=== PATIENT | female | born 1970 | race Caucasian/White ===

== ENCOUNTER 2017-05-01 10:55 | Emergency (ER) | payer MEDICAID ==
[2017-05-01] MEDS ORDERED: Ondansetron 4 MG/2 ML SDV IVPUSH ONE (11:39)
[2017-05-01] MEDS ORDERED: Sodium Chloride 0.9% 1,000 ML IV ONE ×2 (11:39→13:20)
--- NOTE | 2017-05-01 11:47 | EDM.PDOC ---
ED HPI GENERAL MEDICAL PROBLEM - General Chief Complaint: Gastrointestinal Problem Stated Complaint: VOMITING Time Seen by Provider: 05/01/17 11:46 Source of Information: Reports: Patient History Limitations: Reports: No Limitations - History of Present Illness INITIAL COMMENTS - FREE TEXT/NARRATIVE: HISTORY AND PHYSICAL: History of present illness: Patient is a 46-year-old female who presents to the emergency room with complaints of nausea, vomiting, diarrhea and abdominal cramping which started approximately 11 PM yesterday. States they were out of town last night and had eaten at a sitdown restaurant, approximately 2 hours after she started having the symptoms. Although these symptoms occurred shortly after eating, the rest of her family members do not feel ill. Patient states she has some leftover Zofran, took that this morning but did not alleviate any of her symptoms. Denies any blood in her stools or dysuria. No chance of as she has had her tubes tied. Patient has a past medical history of migraine, acid reflux, asthma, depression , and DVT. Patient denies any chest pain, shortness of breath, headache, fever or chills. Denies any recent travel out of the state/country. Review of systems: As per history of present illness and below otherwise all systems reviewed and negative. Past medical history: As per history of present illness and as reviewed below otherwise noncontributory. Surgical history: As per history of present illness and as reviewed below otherwise noncontributory. Social history: No reported history of drug or alcohol abuse. Family history: As per history of present illness and as reviewed below otherwise noncontributory. Physical exam: Gen.: Well-developed and well-nourished 46 show female. Able to speak in full sentences without shortness of breath. Alert and oriented. HEENT: Atraumatic, normocephalic, pupils reactive, negative for conjunctival pallor or scleral icterus, mucous membranes moist - lips appear dry, throat clear, neck supple, nontender, trachea midline. Lungs: Clear to auscultation, breath sounds equal bilaterally, chest nontender. Heart: S1S2, regular, negative for clicks, rubs, or JVD. Abdomen: Soft, nondistended, nontender. Negative for masses or hepatosplenomegaly. Negative for costovertebral tenderness. Pelvis: Stable nontender. Genitourinary: Deferred. Rectal: Deferred. Extremities: Atraumatic, negative for cords or calf pain. Neurovascular unremarkable. Neuro: Awake, alert, oriented. Cranial nerves II through XII unremarkable. Cerebellum unremarkable. Motor and sensory unremarkable throughout. Exam nonfocal. Patient reports she feels better after the IV fluids, Zofran and morphine. She has had 2 loose stools since being here but did not catch them for sample. At this time I'll treat her as a viral gastroenteritis. Patient was educated how to catch a stool culture if she continues to have diarrhea and she may bring these in for further testing at her convenience. Agreeable to plan of care and denies any further questions. Diagnostics: CBC, CMP, Therapeutics: IV fluid, Zofran, morphine Impression: Gastroenteritis Plan: 1. You may take Imodium 4 mg one time and then 2 mg after each loose stool with a maximum of 16 mg per day. 2. Please use the Zofran that you have at home for nausea control. Proceed with a bland diet for the rest of the day and ensure plenty of fluid intake. 3. Follow-up with your primary caregiver in the next 1-2 days. Return to the ED as needed and as discussed. Definitive disposition and diagnosis as appropriate pending reevaluation and review of above. Onset Date: 04/30/17 Onset Time: 23:00 Location: Reports: Abdomen Abdominal Pain Score (Numeric/FACES): 9 - Related Data Allergies Allergy/AdvReac Type Severity Reaction Status Date / Time amoxicillin trihydrate Allergy Hives Verified 03/01/17 11:46 MDT [From Augmentin] cephalexin Allergy Itching Verified 03/01/17 11:46 MDT Penicillins Allergy Hives Verified 03/01/17 11:46 MDT potassium clavulanate Allergy Hives Verified 03/01/17 11:46 MDT [From Augmentin] Sulfa (Sulfonamide Allergy Hives Verified 03/01/17 11:46 MDT Antibiotics) venlafaxine [From Effexor] Allergy Other Verified 05/01/17 11:17 Home Meds: Home Meds Albuterol [Proair HFA] 2 puff INH Q4H PRN 03/17/14 [History] Cyclobenzaprine [Flexeril] 10 mg PO BID PRN 03/17/14 [History] LORazepam [Ativan] 1 mg PO BID PRN 03/17/14 [History] Omeprazole 20 mg PO DAILY 03/17/14 [History] Ondansetron HCl [Ondansetron] 4 mg PO BID PRN 03/17/14 [History] cloNIDine HCl [Clonidine HCl] 1 tab PO BID 03/17/14 [History] Citalopram Hydrobromide [Celexa] 40 mg PO DAILY 11/14/14 [History] Fluticasone Propionate [Flonase] 1 spray BOOKER BID PRN 11/14/14 [History] Rizatriptan [Maxalt] 10 mg PO ASDIRECTED PRN 12/03/14 [History] Rivaroxaban [Xarelto] 20 mg PO DAILY 03/22/15 [History] traMADol HCl [Tramadol HCl] 50 mg PO Q6H PRN 05/20/15 [History] Cholecalciferol (Vitamin D3) [Vitamin D3] 2 tab PO DAILY 03/01/17 [History] DULoxetine [Cymbalta] 30 mg PO DAILY 05/01/17 [History] Diclofenac Sodium [IJD: Diclofenac Sodium] 75 mg PO .TWICE DAILY W MEALS [History] Loratadine 10 mg PO DAILY PRN 05/01/17 [History] Metoprolol Succinate [Toprol XL] 25 mg PO DAILY 05/01/17 [History] Past Medical History HEENT History: Reports: Allergic Rhinitis Cardiovascular History: Reports: Hypertension Other Cardiovascular History: chest pain, fluttering sensation, irregular heart rate, leg swelling, DVT Respiratory History: Reports: COPD Other Respiratory History: cough, pharyngitis - Severe Snoring Gastrointestinal History: Reports: GERD Other Gastrointestinal History: nausea vomitting Genitourinary History: Reports: Urinary Incontinence, Other (See Below) Other Genitourinary History: UTI, pelvic pain HEEL REDUCER History: Reports: , Other (See Below) Other OB/BYN History: breast lump, menorrhagia, hot flashes, postcoital bleeding Musculoskeletal History: Reports: Osteoarthritis Other Musculoskeletal History: restless leg syndrome, ac joint bone spurs, R biceps tendonitis, R shoulder pain, R rotator cuff tear, knee tear, patellar relalingment syndrome Neurological History: Reports: Headaches, Chronic, Migraines, Neuropathy, Peripheral, Vertigo Other Neuro History: fatigue, insomnia Psychiatric History: Reports: Anxiety, Depression, PTSD Endocrine/Metabolic History: Reports: Obesity/BMI 30+ Hematologic History: Reports: Anticoagulation Therapy, Other (See Below) Other Hematologic History: hypovitaminosis vitamin D, post thromotic syndrome Dermatologic History: Reports: Seborrheic Dermatitis Other Dermatologic History: ecezma, varicose veins, folliculitis - Infectious Disease History Infectious Disease History: Reports: Chicken Pox - Past Surgical History HEENT Surgical History: Reports: Myringotomy w Tube(s) Female Surgical History: Reports: Oophorectomy, Tubal Ligation Musculoskeletal Surgical History: Reports: Arthroscopic Procedure, Shoulder Surgery Social & Family History - Family History Family Medical History: Noncontributory - Tobacco Use Smoking Status *Q: Never Smoker Used Tobacco, but Quit: No Second Hand Smoke Exposure: Yes - Caffeine Use Caffeine Use: Reports: Soda - Alcohol Use Days Per Week of Alcohol Use: 0 Number of Drinks Per Day: 0 Total Drinks Per Week: 0 - Recreational Drug Use Recreational Drug Use: No Drug Use in Last 12 Months: No - Living Situation & Occupation Living situation: Reports: , with Family Occupation: Unemployed ED ROS GENERAL - Review of Systems Review Of Systems: ROS reveals no pertinent complaints other than HPI. ED EXAM, GI/ABD - Physical Exam Exam: See Below (See dictation) Course - Vital Signs Last Recorded V/S: Last Vital Signs Temp 36.5 C 05/01/17 11:15 Pulse 94 05/01/17 12:24 Resp 16 05/01/17 12:24 BP 136/84 05/01/17 12:24 Pulse Ox 98 05/01/17 12:24 - Orders/Labs/Meds Orders: Active Orders 24 hr Category Date Time Status CULTURE STOOL + CAMPY+SHIGATOX [RM] Stat Lab 05/01/17 13:20 Uncollected OVA & PARASITES BY IMMUNOASSAY [MREF] Stat Lab 05/01/17 13:20 Uncollected Sodium Chloride 0.9% [Normal Saline] 1,000 ml Med 05/01/17 13:20 Active IV STAT Medication Orders Sodium Chloride (Normal Saline) 1,000 mls @ 999 mls/hr IV STAT ONE Stop: 05/01/17 14:20 Last Admin: 05/01/17 13:25 Dose: 999 mls/hr Labs: Laboratory Tests 10/15/17 10/15/17 Range/Units 11:51 11:51 WBC 10.07 (4.0-11.0) K/uL RBC 4.70 (4.30-5.90) M/uL Hgb 13.5 (12.0-16.0) g/dL Hct 39.7 (36.0-46.0) % MCV 84.5 (80.0-98.0) fL MCH 28.7 (27.0-32.0) pg MCHC 34.0 (31.0-37.0) g/dL RDW Std Deviation 43.3 (28.0-62.0) fl RDW Coeff of Sonido 14 (11.0-15.0) % Plt Count 319 (150-400) K/uL MPV 9.20 (7.40-12.00) fL Neut % (Auto) 88.4 H (48.0-80.0) % Lymph % (Auto) 5.5 L (16.0-40.0) % Prentiss % (Auto) 5.2 (0.0-15.0) % Eos % (Auto) 0.7 (0.0-7.0) % Baso % (Auto) 0.2 (0.0-1.5) % Neut # (Auto) 8.9 H (1.4-5.7) K/uL Lymph # (Auto) 0.6 (0.6-2.4) K/uL Prentiss # (Auto) 0.5 (0.0-0.8) K/uL Eos # (Auto) 0.1 (0.0-0.7) K/uL Baso # (Auto) 0.0 (0.0-0.1) K/uL Nucleated RBC % 0.0 /100WBC Nucleated RBCs # 0 K/uL Sodium 136 (136-146) mmol/L Potassium 3.9 (3.5-5.1) mmol/L Chloride 102 (98-110) mmol/L Carbon Dioxide 23 (21-31) mmol/L BUN 14 (6.0-23.0) mg/dL Creatinine 0.8 (0.6-1.5) mg/dL Est Cr Clr Drug Dosing 88.64 mL/min Estimated GFR (MDRD) > 60.0 ml/min Glucose 122 H (60-110) mg/dL Calcium 9.3 (8.8-10.8) mg/dL Total Bilirubin 0.8 (0.1-1.5) mg/dL AST 24 (5-40) IU/L ALT 31 (8-54) IU/L Alkaline Phosphatase 124 (40-150) Total Protein 7.7 (6.0-8.0) g/dL Albumin 4.0 (3.5-5.0) g/dL Globulin 3.7 H (2.0-3.5) g/dL Albumin/Globulin Ratio 1.1 L (1.3-2.8) Meds: Medications Generic Name Dose Route Start Last Admin Trade Name Freq PRN Reason Stop Dose Admin Sodium Chloride 1,000 mls @ 999 mls/hr 05/01/17 13:20 05/01/17 13:25 Normal Saline IV 05/01/17 14:20 999 mls/hr STAT ONE Administration Discontinued Medications Generic Name Dose Route Start Last Admin Trade Name Freq PRN Reason Stop Dose Admin Dicyclomine HCl 10 mg 05/01/17 13:19 05/01/17 13:23 Bentyl PO 05/01/17 13:20 10 mg ONETIME ONE Administration Sodium Chloride 1,000 mls @ 999 mls/hr 05/01/17 11:39 05/01/17 11:56 Normal Saline IV 05/01/17 12:39 999 mls/hr STAT ONE Administration Morphine Sulfate 2 mg 05/01/17 12:08 05/01/17 12:22 Morphine IVPUSH 05/01/17 12:09 2 mg ONETIME ONE Administration Ondansetron HCl 4 mg 05/01/17 11:39 05/01/17 11:57 Zofran IVPUSH 05/01/17 11:40 4 mg ONETIME ONE Administration Departure - Departure Time of Disposition: 13:46 Disposition: Home, Self-Care 01 Clinical Impression: Gastroenteritis - Discharge Information Referrals: PCP,None [Primary Care Provider] - Forms: ED Department Discharge Additional Instructions: My general discharge The following information is given to patients seen in the emergency department who are being discharged to home. This information is to outline your options for follow-up care. We provide all patients seen in our emergency department with a follow-up referral. The need for follow-up, as well as the timing and circumstances, are variable depending upon the specifics of your emergency department visit. If you don't have a primary care physician on staff, we will provide you with a referral. We always advise you to contact your personal physician following an emergency department visit to inform them of the circumstance of the visit and for follow-up with them and/or the need for any referrals to a consulting specialist. The emergency department will also refer you to a specialist when appropriate. This referral assures that you have the opportunity for follow-up care with a specialist. All of these measure are taken in an effort to provide you with optimal care, which includes your follow-up. Under all circumstances we always encourage you to contact your private physician who remains a resource for coordinating your care. When calling for follow-up care, please make the office aware that this follow-up is from your recent emergency room visit. If for any reason you are refused follow-up, please contact the [facility] Emergency Department at and asked to speak to the emergency department charge nurse. [facility] [address] [place] [address] 1. You may take Imodium 4 mg one time and then 2 mg after each loose stool with a maximum of 16 mg per day. 2. Please use the Zofran that you have at home for nausea control. Proceed with a bland diet for the rest of the day and ensure plenty of fluid intake. 3. Follow-up with your primary caregiver in the next 1-2 days. Return to the ED as needed and as discussed. - My Orders Last 24 Hours: My Active Orders 05/01/17 13:20 CULTURE STOOL + CAMPY+SHIGATOX [RM] Stat OVA & PARASITES BY IMMUNOASSAY [MREF] Stat Sodium Chloride 0.9% [Normal Saline] 1,000 ml IV STAT - Assessment/Plan Last 24 Hours: My Active Orders 05/01/17 13:20 CULTURE STOOL + CAMPY+SHIGATOX [RM] Stat OVA & PARASITES BY IMMUNOASSAY [MREF] Stat Sodium Chloride 0.9% [Normal Saline] 1,000 ml IV STAT
[2017-05-01] MEDS ORDERED: Morphine 2 MG/ML Syringe IVPUSH ONE (12:08)
[2017-05-01 12:26] LABS: CHLORIDE,CL 102 mmol/L (98-110); SODIUM,NA 136 mmol/L (136-146)
[2017-05-01] MEDS ORDERED: Dicyclomine 10 MG Cap PO ONE ×2 (13:19→15:52)
[2017-05-01] MEDS ORDERED: Iopamidol 755 MG/ML 500 ML Multipack Bottle IVPUSH STA (14:41)
[2017-05-01 16:09] VITALS: BP 128/85
--- NOTE | 2017-05-02 13:38 | CT ---
EXAM DATE: 05/01/17 PATIENT'S AGE: 46 Patient: JAIME TRICKEY Facility: [place], [place] Site . Site : 1970 Study: CT Abdomen/Pelvis [id number]/15/2017 3:10:45 PM Ordering Physician: Doctor Arguelles Final Report: INDICATION: Pain. Diarrhea. Blood in stool. TECHNIQUE: Multiple axial images were obtained from the diaphragm to the symphysis pubis after administration of 100 mL of Isovue-370 intravenously. Sagittal and coronal re-formatted images were obtained. COMPARISON: None. FINDINGS: The visualized portion of the lung bases are clear. The liver is of diffuse decreased attenuation consistent with fatty infiltration of the liver. The spleen, pancreas, gallbladder and adrenal glands are unremarkable. There is no mass or hydronephrosis in the kidneys. There is no evidence of a bowel obstruction. The appendix is visualized in the right lower quadrant and is unremarkable. The abdominal aorta is normal in caliber. There is no adenopathy seen. There is no free intraperitoneal air or free fluid identified in the abdomen or pelvis. IMPRESSION: 1. No acute abnormality on CT scan abdomen and pelvis with contrast. 2. Fatty infiltration of the liver. Dictated by Duane Hong MD @ 05/01/2017 3:41:48 PM Dictated by: Duane Hong MD @ 05/01/2017 15:42:00 (Electronic Signature) Report Signed by Proxy. [facility]
== END 2017-05-01 16:00 | disposition home or self-care (01) ==
LOC: MW.ED 10:55
DX: K52.9 Noninfective gastroenteritis and colitis, unspecified (principal); I10 Essential (primary) hypertension; J44.9 Chronic obstructive pulmonary disease, unspecified; K21.9 Gastro-esophageal reflux disease without esophagitis; M19.90 Unspecified osteoarthritis, unspecified site; F32.9 Major depressive disorder, single episode, unspecified; E66.9 Obesity, unspecified; Z79.01 Long term (current) use of anticoagulants; Z98.51 Tubal ligation status; Z98.890 Other specified postprocedural states; Z79.899 Other long term (current) drug therapy; Z88.0 Allergy status to penicillin; Z88.1 Allergy status to other antibiotic agents; Z88.2 Allergy status to sulfonamides; Z88.8 Allergy status to other drugs, medicaments and biological substances
CPT/HCPCS: 36415; 74177; 80053; 85025; 96361; 96374; 96375; 99284; A9270; J2270; J2405; J7040; Q9967

== ENCOUNTER 2017-08-30 10:49 | Emergency (ER) | payer MEDICAID, OTHER ==
[2017-08-30] MEDS ORDERED: Ketorolac 60 MG/2 ML SDV IM ONE (11:15)
--- NOTE | 2017-08-30 11:16 | EDM.PDOC ---
ED HPI GENERAL MEDICAL PROBLEM - General Chief Complaint: Headache Stated Complaint: MIGRAINE Time Seen by Provider: 08/30/17 11:04 Source of Information: Reports: Patient History Limitations: Reports: No Limitations - History of Present Illness INITIAL COMMENTS - FREE TEXT/NARRATIVE: History of present illness: []Patient's had headache for 5 days that feels like a typical migraine. She has tried Maxalt but has not worked which he usually does. Patient has also use Excedrin Migraine and sinus medications without relief. She denies any vomiting , fevers or recent illnesses with congestion and cough runny nose. He does not currently have a primary care doctor here is not been able to follow-up with her doctor out of town. Review of systems: As per history of present illness and below otherwise all systems reviewed and negative. Past medical history: As per history of present illness and as reviewed below otherwise noncontributory. Surgical history: As per history of present illness and as reviewed below otherwise noncontributory. Social history: No reported history of drug or alcohol abuse. Family history: As per history of present illness and as reviewed below otherwise noncontributory. Physical exam: General: Well developed, well nourished in NAD HEENT: Atraumatic, normocephalic, pupils reactive, negative for conjunctival pallor or scleral icterus, mucous membranes moist, throat clear, neck supple, nontender, trachea midline. No sinus tenderness Lungs: Clear to auscultation, breath sounds equal bilaterally, chest nontender. Heart: S1S2, regular, negative for clicks, rubs, or JVD. Abdomen: Soft, nondistended, nontender. Negative for masses or hepatosplenomegaly. Negative for costovertebral tenderness. Pelvis: Stable nontender. Genitourinary: Deferred. Rectal: Deferred. Extremities: Atraumatic, negative for cords or calf pain. Neurovascular unremarkable. Neuro: Awake, alert, oriented. Cranial nerves II through XII unremarkable. Cerebellum unremarkable. Motor and sensory unremarkable throughout. Exam nonfocal. Diagnostics: [] Therapeutics: []Toradol IM with improvement Impression: []Migraine headache Plan: []Ice pack to head continue headache meds as directed and follow-up with primary care retractor symptoms worsen or change Definitive disposition and diagnosis as appropriate pending reevaluation and review of above. headache Pain Score (Numeric/FACES): 8 - Related Data Allergies Allergy/AdvReac Type Severity Reaction Status Date / Time amoxicillin trihydrate Allergy Hives Verified 08/30/17 11:34 [From Augmentin] cephalexin Allergy Itching Verified 08/30/17 11:34 Penicillins Allergy Hives Verified 08/30/17 11:34 potassium clavulanate Allergy Hives Verified 08/30/17 11:34 [From Augmentin] Sulfa (Sulfonamide Allergy Hives Verified 08/30/17 11:34 Antibiotics) venlafaxine [From Effexor] Allergy Other Verified 08/30/17 11:34 Home Meds: Home Meds Albuterol [Proair HFA] 2 puff INH Q4H PRN 03/17/14 [History] Cyclobenzaprine [Flexeril] 10 mg PO BID PRN 03/17/14 [History] LORazepam [Ativan] 1 mg PO BID PRN 03/17/14 [History] Omeprazole 20 mg PO DAILY 03/17/14 [History] Ondansetron HCl [Ondansetron] 4 mg PO BID PRN 03/17/14 [History] cloNIDine HCl [Clonidine HCl] 1 tab PO BID 03/17/14 [History] Citalopram Hydrobromide [Celexa] 40 mg PO DAILY 11/14/14 [History] Fluticasone Propionate [Flonase] 1 spray BOOKER BID PRN 11/14/14 [History] Rizatriptan [Maxalt] 10 mg PO ASDIRECTED PRN 12/03/14 [History] Rivaroxaban [Xarelto] 20 mg PO DAILY 03/22/15 [History] traMADol HCl [Tramadol HCl] 50 mg PO Q6H PRN 05/20/15 [History] Cholecalciferol (Vitamin D3) [Vitamin D3] 2 tab PO DAILY 03/01/17 [History] DULoxetine [Cymbalta] 30 mg PO DAILY 05/01/17 [History] Diclofenac Sodium [IJD: Diclofenac Sodium] 75 mg PO .TWICE DAILY W MEALS [History] Loratadine 10 mg PO DAILY PRN 05/01/17 [History] Metoprolol Succinate [Toprol XL] 25 mg PO DAILY 05/01/17 [History] Past Medical History HEENT History: Reports: Allergic Rhinitis Cardiovascular History: Reports: Hypertension Other Cardiovascular History: chest pain, fluttering sensation, irregular heart rate, leg swelling, DVT Respiratory History: Reports: COPD Other Respiratory History: cough, pharyngitis - Severe Snoring Gastrointestinal History: Reports: GERD Other Gastrointestinal History: nausea vomitting Genitourinary History: Reports: Urinary Incontinence, Other (See Below) Other Genitourinary History: UTI, pelvic pain EDGE MOLDER History: Reports: , Other (See Below) Other OB/BYN History: breast lump, menorrhagia, hot flashes, postcoital bleeding Musculoskeletal History: Reports: Osteoarthritis Other Musculoskeletal History: restless leg syndrome, ac joint bone spurs, R biceps tendonitis, R shoulder pain, R rotator cuff tear, knee tear, patellar relalingment syndrome Neurological History: Reports: Headaches, Chronic, Migraines, Neuropathy, Peripheral, Vertigo Other Neuro History: fatigue, insomnia Psychiatric History: Reports: Anxiety, Depression, PTSD Endocrine/Metabolic History: Reports: Obesity/BMI 30+ Hematologic History: Reports: Anticoagulation Therapy, Other (See Below) Other Hematologic History: hypovitaminosis vitamin D, post thromotic syndrome Dermatologic History: Reports: Seborrheic Dermatitis Other Dermatologic History: ecezma, varicose veins, folliculitis - Infectious Disease History Infectious Disease History: Reports: Chicken Pox - Past Surgical History HEENT Surgical History: Reports: Myringotomy w Tube(s) Female Surgical History: Reports: Oophorectomy, Tubal Ligation Musculoskeletal Surgical History: Reports: Arthroscopic Procedure, Shoulder Surgery Social & Family History - Family History Family Medical History: Noncontributory - Tobacco Use Smoking Status *Q: Never Smoker Used Tobacco, but Quit: No Second Hand Smoke Exposure: Yes - Caffeine Use Caffeine Use: Reports: Soda - Alcohol Use Days Per Week of Alcohol Use: 0 Number of Drinks Per Day: 0 Total Drinks Per Week: 0 - Recreational Drug Use Recreational Drug Use: No Drug Use in Last 12 Months: No - Living Situation & Occupation Living situation: Reports: , with Family Occupation: Unemployed ED ROS GENERAL - Review of Systems Review Of Systems: See Below (See history of present illness) - Physical Exam Exam: See Below (See history of present illness) Course - Vital Signs Last Recorded V/S: Last Vital Signs Temp 97.0 F 08/30/17 11:35 Pulse 70 08/30/17 11:35 Resp 18 08/30/17 11:35 BP 138/65 08/30/17 11:35 Pulse Ox 97 08/30/17 11:35 - Orders/Labs/Meds Meds: Medications Discontinued Medications Generic Name Dose Route Start Last Admin Trade Name Mayra PRN Reason Stop Dose Admin Ketorolac Tromethamine 60 mg 08/30/17 11:15 08/30/17 11:38 Toradol IM 08/30/17 11:16 60 mg ONETIME ONE Administration Departure - Departure Time of Disposition: 11:47 Disposition: Home, Self-Care 01 Condition: Good Clinical Impression: Migraine headache Qualifiers: Migraine type: unspecified Status migrainosus presence: without status migrainosus Intractability: not intractable Qualified Code(s): G43.909 - Migraine, unspecified, not intractable, without status migrainosus - Discharge Information Referrals: PCP,None [Primary Care Provider] - Forms: ED Department Discharge Additional Instructions: The following information is given to patients seen in the emergency department who are being discharged to home. This information is to outline your options for follow-up care. We provide all patients seen in our emergency department with a follow-up referral. The need for follow-up, as well as the timing and circumstances, are variable depending upon the specifics of your emergency department visit. If you don't have a primary care physician on staff, we will provide you with a referral. We always advise you to contact your personal physician following an emergency department visit to inform them of the circumstance of the visit and for follow-up with them and/or the need for any referrals to a consulting specialist. The emergency department will also refer you to a specialist when appropriate. This referral assures that you have the opportunity for follow-up care with a specialist. All of these measure are taken in an effort to provide you with optimal care, which includes your follow-up. Under all circumstances we always encourage you to contact your private physician who remains a resource for coordinating your care. When calling for follow-up care, please make the office aware that this follow-up is from your recent emergency room visit. If for any reason you are refused follow-up, please contact the [facility] Emergency Department at and asked to speak to the emergency department charge nurse. [facility] [address] [place] [id number]
[2017-08-30 12:11] VITALS: BP 130/71
== END 2017-08-30 12:00 | disposition home or self-care (01) ==
LOC: MW.ED 10:49
DX: G43.909 Migraine, unspecified, not intractable, without status migrainosus (principal); I10 Essential (primary) hypertension; J44.9 Chronic obstructive pulmonary disease, unspecified; K21.9 Gastro-esophageal reflux disease without esophagitis; F32.9 Major depressive disorder, single episode, unspecified; Z79.01 Long term (current) use of anticoagulants; Z77.22 Contact with and (suspected) exposure to environmental tobacco smoke (acute) (chronic); Z79.899 Other long term (current) drug therapy; Z88.0 Allergy status to penicillin; Z88.1 Allergy status to other antibiotic agents; Z88.2 Allergy status to sulfonamides; Z88.8 Allergy status to other drugs, medicaments and biological substances
CPT/HCPCS: 96372; 99283; J1885

== ENCOUNTER 2017-10-27 19:41 | Emergency (ER) | payer MEDICAID, OTHER ==
--- NOTE | 2017-10-27 19:49 | EDM.PDOC ---
ED HPI GENERAL MEDICAL PROBLEM - General Stated Complaint: PT HAS MIGRAINE Time Seen by Provider: 10/27/17 19:43 Source of Information: Reports: Patient History Limitations: Reports: No Limitations - History of Present Illness INITIAL COMMENTS - FREE TEXT/NARRATIVE: HISTORY AND PHYSICAL: History of present illness: Patient is a 46-year-old female who presents to the emergency room with complaints of migraine headache, photophobia, noise sensitivity and nausea x 24 hours. Patient has a long standing history of migraines and typically takes Maxalt and Excedrin Migraine to help alleviate her symptoms. She states "as of lately these medications are not helping" and has not found relief with these. She reports she was seeing a nurse practitioner in [place], and is in the process of finding a new provider as she has moved to [place]. She denies any recent head injury, trauma, loss of consciousness or syncope. She denies any fever, chills, chest pain or shortness of breath. Denies any abdominal pain, vomiting, diarrhea or constipation. Review of systems: As per history of present illness and below otherwise all systems reviewed and negative. Past medical history: As per history of present illness and as reviewed below otherwise noncontributory. Surgical history: As per history of present illness and as reviewed below otherwise noncontributory. Social history: No reported history of drug or alcohol abuse. Family history: As per history of present illness and as reviewed below otherwise noncontributory. Physical exam: General: Well-developed and well-nourished 46 she'll female. Alert and oriented. Nontoxic appearing and in no acute distress. HEENT: Atraumatic, normocephalic, pupils equal and reactive bilaterally, negative for conjunctival pallor or scleral icterus, photophobic, mucous membranes moist, throat clear, neck supple, nontender, trachea midline. No drooling or trismus noted. No meningeal signs Lungs: Clear to auscultation, breath sounds equal bilaterally, chest nontender. Heart: S1S2, regular rate and rhythm without overt murmur Abdomen: Soft, nondistended, nontender. Negative for masses or hepatosplenomegaly. Negative for costovertebral tenderness. Pelvis: Stable nontender. Genitourinary: Deferred. Rectal: Deferred. Skin: Intact, warm, dry. No lesions or rashes noted. Extremities: Atraumatic, negative for cords or calf pain. Neurovascular unremarkable. Neuro: Awake, alert, oriented. Cranial nerves II through XII unremarkable. Cerebellum unremarkable. Motor and sensory unremarkable throughout. Exam nonfocal. Notes: Patient was seen in the emergency room about a month and a half ago for similar symptoms and was given IM Toradol. She states this medication did alleviate her discomfort, and would like to try this again today. 30 minutes after receiving the IM Toradol and Zofran she states she does not feel much better. She does have a ride home, will give IV medications with fluids. Diagnostics: [] Therapeutics: IM Toradol, Zofran ODT Phenergan IM, Ativan, Benadryl Impression: Migraine Headache Plan: 1. Take the remainder of the day to rest in a quiet dark room. 2. Please continue to take your Maxalt and OTC migraine medication as directed. 3. Follow up with Neurology in the next 2-3 days for further management of your migraines. Establish care with a PCP. Return to the ED as needed and as discussed. Definitive disposition and diagnosis as appropriate pending reevaluation and review of above. Onset: Today Location: Reports: Head Quality: Reports: Sharp Severity: Moderate Improves with: Reports: None Headache Pain Score (Numeric/FACES): 9 - Related Data Allergies Allergy/AdvReac Type Severity Reaction Status Date / Time amoxicillin trihydrate Allergy Hives Verified 10/27/17 20:03 [From Augmentin] cephalexin Allergy Itching Verified 10/27/17 20:03 Penicillins Allergy Hives Verified 10/27/17 20:03 potassium clavulanate Allergy Hives Verified 10/27/17 20:03 [From Augmentin] Sulfa (Sulfonamide Allergy Hives Verified 10/27/17 20:03 Antibiotics) venlafaxine [From Effexor] Allergy Other Verified 10/27/17 20:03 Home Meds: Home Meds Albuterol [Proair HFA] 2 puff INH Q4H PRN 03/17/14 [History] Cyclobenzaprine [Flexeril] 10 mg PO BID PRN 03/17/14 [History] LORazepam [Ativan] 1 mg PO BID PRN 03/17/14 [History] Omeprazole 20 mg PO DAILY 03/17/14 [History] Ondansetron HCl [Ondansetron] 4 mg PO BID PRN 03/17/14 [History] cloNIDine HCl [Clonidine HCl] 1 tab PO BID 03/17/14 [History] Citalopram Hydrobromide [Celexa] 40 mg PO DAILY 11/14/14 [History] Fluticasone Propionate [Flonase] 1 spray BOOKER BID PRN 11/14/14 [History] Rizatriptan [Maxalt] 10 mg PO ASDIRECTED PRN 12/03/14 [History] Rivaroxaban [Xarelto] 20 mg PO DAILY 03/22/15 [History] traMADol HCl [Tramadol HCl] 50 mg PO Q6H PRN 05/20/15 [History] Cholecalciferol (Vitamin D3) [Vitamin D3] 2 tab PO DAILY 03/01/17 [History] DULoxetine [Cymbalta] 30 mg PO DAILY 05/01/17 [History] Diclofenac Sodium [IJD: Diclofenac Sodium] 75 mg PO .TWICE DAILY W MEALS [History] Loratadine 10 mg PO DAILY PRN 05/01/17 [History] Metoprolol Succinate [Toprol XL] 25 mg PO DAILY 05/01/17 [History] Past Medical History HEENT History: Reports: Allergic Rhinitis Cardiovascular History: Reports: Hypertension Other Cardiovascular History: chest pain, fluttering sensation, irregular heart rate, leg swelling, DVT Respiratory History: Reports: COPD Other Respiratory History: cough, pharyngitis - Severe Snoring Gastrointestinal History: Reports: GERD Other Gastrointestinal History: nausea vomitting Genitourinary History: Reports: Urinary Incontinence, Other (See Below) Other Genitourinary History: UTI, pelvic pain 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: , Other (See Below) Other OB/BYN History: breast lump, menorrhagia, hot flashes, postcoital bleeding Musculoskeletal History: Reports: Osteoarthritis Other Musculoskeletal History: restless leg syndrome, ac joint bone spurs, R biceps tendonitis, R shoulder pain, R rotator cuff tear, knee tear, patellar relalingment syndrome Neurological History: Reports: Headaches, Chronic, Migraines, Neuropathy, Peripheral, Vertigo Other Neuro History: fatigue, insomnia Psychiatric History: Reports: Anxiety, Depression, PTSD Endocrine/Metabolic History: Reports: Obesity/BMI 30+ Hematologic History: Reports: Anticoagulation Therapy, Other (See Below) Other Hematologic History: hypovitaminosis vitamin D, post thromotic syndrome Dermatologic History: Reports: Seborrheic Dermatitis Other Dermatologic History: ecezma, varicose veins, folliculitis - Infectious Disease History Infectious Disease History: Reports: Chicken Pox - Past Surgical History HEENT Surgical History: Reports: Myringotomy w Tube(s) Female Surgical History: Reports: Oophorectomy, Tubal Ligation Musculoskeletal Surgical History: Reports: Arthroscopic Procedure, Shoulder Surgery Social & Family History - Family History Family Medical History: Noncontributory - Tobacco Use Smoking Status *Q: Never Smoker Used Tobacco, but Quit: No Second Hand Smoke Exposure: Yes - Caffeine Use Caffeine Use: Reports: Soda - Alcohol Use Days Per Week of Alcohol Use: 0 Number of Drinks Per Day: 0 Total Drinks Per Week: 0 - Recreational Drug Use Recreational Drug Use: No Drug Use in Last 12 Months: No - Living Situation & Occupation Living situation: Reports: , with Family Occupation: Unemployed ED ROS GENERAL - Review of Systems Review Of Systems: ROS reveals no pertinent complaints other than HPI. - Physical Exam Exam: See Below (See dictation) Course - Vital Signs Last Recorded V/S: Last Vital Signs Temp 97.4 F 10/27/17 19:55 Pulse 86 10/27/17 20:30 Resp 18 10/27/17 20:30 BP 132/80 10/27/17 20:30 Pulse Ox 96 10/27/17 20:30 - Orders/Labs/Meds Orders: Active Orders 24 hr Category Date Time Status Sodium Chloride 0.9% [Normal Saline] 500 ml Med 10/27/17 20:45 Active IV STAT Medication Orders Sodium Chloride (Normal Saline) 500 mls @ 999 mls/hr IV STAT KAILA Meds: Medications Generic Name Dose Route Start Last Admin Trade Name Freq PRN Reason Stop Dose Admin Sodium Chloride 500 mls @ 999 mls/hr 10/27/17 20:45 Normal Saline IV STAT KAILA Discontinued Medications Generic Name Dose Route Start Last Admin Trade Name Freq PRN Reason Stop Dose Admin Diphenhydramine HCl 25 mg 10/27/17 20:44 Benadryl IVPUSH 10/27/17 20:45 ONETIME ONE Ketorolac Tromethamine 60 mg 10/27/17 20:13 10/27/17 20:26 Toradol IM 10/27/17 20:14 60 mg ONETIME ONE Administration Lorazepam 1 mg 10/27/17 20:44 Ativan IVPUSH 10/27/17 20:45 ONETIME ONE Ondansetron HCl 4 mg 10/27/17 20:13 10/27/17 20:27 Zofran Odt PO 10/27/17 20:14 4 mg ONETIME ONE Administration Promethazine HCl 25 mg 10/27/17 20:45 Phenergan IM 10/27/17 20:46 ONETIME ONE Departure - Departure Time of Disposition: 21:09 Disposition: Home, Self-Care 01 Clinical Impression: Migraine - Discharge Information Instructions: Migraine Headache, [id number] Referrals: PCP,None [Primary Care Provider] - Additional Instructions: The following information is given to patients seen in the emergency department who are being discharged to home. This information is to outline your options for follow-up care. We provide all patients seen in our emergency department with a follow-up referral. The need for follow-up, as well as the timing and circumstances, are variable depending upon the specifics of your emergency department visit. If you don't have a primary care physician on staff, we will provide you with a referral. We always advise you to contact your personal physician following an emergency department visit to inform them of the circumstance of the visit and for follow-up with them and/or the need for any referrals to a consulting specialist. The emergency department will also refer you to a specialist when appropriate. This referral assures that you have the opportunity for follow-up care with a specialist. All of these measure are taken in an effort to provide you with optimal care, which includes your follow-up. Under all circumstances we always encourage you to contact your private physician who remains a resource for coordinating your care. When calling for follow-up care, please make the office aware that this follow-up is from your recent emergency room visit. If for any reason you are refused follow-up, please contact the [facility] Emergency Department at and asked to speak to the emergency department charge nurse. [facility] Primary Care [address] [place] [id number] [facility] Specialty Care - Neurology: Dr [facility] [address] [place] [address], [address] [place] [address] 1. Take the remainder of the day to rest in a quiet dark room. No driving for the rest of the evening due to the medications you received tonight. 2. Please continue to take your Maxalt and OTC migraine medication as directed. 3. Follow up with Neurology in the next 2-3 days for further management of your migraines. Establish care with a PCP. Return to the ED as needed and as discussed. - My Orders Last 24 Hours: My Active Orders 10/27/17 20:45 Sodium Chloride 0.9% [Normal Saline] 500 ml IV STAT - Assessment/Plan Last 24 Hours: My Active Orders 10/27/17 20:45 Sodium Chloride 0.9% [Normal Saline] 500 ml IV STAT
[2017-10-27] MEDS ORDERED: Ketorolac 60 MG/2 ML SDV IM ONE (20:13)
[2017-10-27] MEDS ORDERED: Ondansetron 4 MG Tab.DIS PO ONE (20:13)
[2017-10-27] MEDS ORDERED: diphenhydrAMINE 50 MG/ML SDV IVPUSH ONE (20:44)
[2017-10-27] MEDS ORDERED: LORazepam 2 MG/ML SDV IVPUSH ONE (20:44)
[2017-10-27] MEDS ORDERED: Sodium Chloride 0.9% 500 ML IV SCH (20:45)
[2017-10-27] MEDS ORDERED: Promethazine 25 MG/ML SDV IM ONE (20:45)
[2017-10-27 22:02] VITALS: BP 138/83
== END 2017-10-27 22:00 | disposition home or self-care (01) ==
LOC: MW.ED 19:41
DX: G43.909 Migraine, unspecified, not intractable, without status migrainosus (principal); I10 Essential (primary) hypertension; Z88.1 Allergy status to other antibiotic agents; Z88.0 Allergy status to penicillin; Z88.2 Allergy status to sulfonamides; Z88.8 Allergy status to other drugs, medicaments and biological substances; Z79.899 Other long term (current) drug therapy
CPT/HCPCS: 96361; 96372; 96374; 96375; 99283; A9270; J1200; J1885; J2060; J2550; J7040